=== PATIENT | female | born 1945 | race Caucasian/White ===

== ENCOUNTER 2021-02-13 18:10 | Emergency (ER) | payer MEDICARE, OTHER ==
[~2021-02-13] VITALS: Ht 162.6 cm; Wt 54.0 kg
[2021-02-13 20:01] LABS: ALANINE AMINOTRANSFERASE 37 U/L (12-78); ALBUMIN 3.9 G/DL (3.4-5.0); ALBUMIN/GLOBULIN RATIO 1.1 (1.1-1.5); ALKALINE PHOSPHATASE 71 IU/L (46-116); ANION GAP 12 (8-16); ASPARTATE AMINO TRANSFERASE 31 U/L (10-37); BILIRUBIN,TOTAL 0.3 MG/DL (0.1-1.0); BLOOD UREA NITROGEN 17 MG/DL (7-18); BUN/CREATININE RATIO 23.3 (6.6-38.0); CALCIUM 8.8 MG/DL (8.5-10.1); CHLORIDE 106 MMOL/L (99-107); CREATININE 0.73 MG/DL (0.40-0.90); GLUCOSE 94 MG/DL (70-104); POTASSIUM 4.4 MMOL/L (3.5-5.1); SODIUM 143 MMOL/L (135-145); TOTAL CARBON DIOXIDE 25.2 MMOL/L (24-32); TOTAL PROTEIN 7.3 G/DL (6.4-8.2); eGFR 78 ML/MIN
[2021-02-13 20:23] LABS: BASOPHILS % (AUTO) 0.4 % (0-1); EOSINOPHILS # (AUTO) 0.1 X10'3 (0-0.9); EOSINOPHILS % (AUTO) 1.6 % (0-6); HEMOGLOBIN 13.1 g/dl (12.0-16.0); LYMPHOCYTES # (AUTO) 1.5 X10'3 (1.1-4.8); LYMPHOCYTES % (AUTO) 18.1 % (21-51); MEAN CORPUSCULAR HEMOGLOBIN 31.7 PG (27.0-31.0); MEAN CORPUSCULAR HGB CONC 32.8 g/dL (33.0-36.5); MEAN CORPUSCULAR VOLUME 96.5 FL (78-98); MEAN PLATELET VOLUME 7.5 FL (7.4-10.4); MONOCYTES # (AUTO) 0.7 X10'3 (0-0.9); MONOCYTES % (AUTO) 8.6 % (2-12); NEUTROPHILS # (AUTO) 6.1 X10'3 (1.8-7.7); NEUTROPHILS % (AUTO) 71.3 % (42-75); PLATELET COUNT 387 X10'3 (140-440); RED BLOOD COUNT 4.14 X10'6 (4.20-5.60); RED CELL DISTRIBUTION WIDTH 13.4 % (11.5-14.5); WHITE BLOOD COUNT 8.5 X10'3 (4.5-11.0)
[2021-02-14] MEDS ORDERED: aspirin 81mg tab.chew PO ONE (00:20)
[2021-02-14 00:40] VITALS: BP 121/67
[2021-02-15] MEDS ORDERED: PRE1T PO (16:19)
[2021-02-15] MEDS ORDERED: ATOR20TA66 PO (16:19)
[2021-02-15] MEDS ORDERED: EZET10TA48 PO (16:19)
[2021-02-15] MEDS ORDERED: ESTR-164 (16:19)
[2021-02-15] MEDS ORDERED: LEVO50TA8 PO (16:19)
== END 2021-02-14 02:10 | disposition home or self-care (01) ==
LOC: ER 18:11
DX: R07.89 Other chest pain (principal); R05 Cough; R06.02 Shortness of breath; Z90.89 Acquired absence of other organs; Z90.710 Acquired absence of both cervix and uterus; Z88.8 Allergy status to other drugs, medicaments and biological substances
CPT/HCPCS: 36415; 71045; 80053; 83880; 84484; 85025; 93005; 99285

== ENCOUNTER 2021-02-15 11:22 | Observation (INO) | payer MEDICARE, OTHER ==
[~2021-02-15] VITALS: Ht 162.6 cm; Wt 58.9 kg
[2021-02-15] MEDS ORDERED: aspirin 81mg tab.chew PO ONE ×2 (11:45→16:10)
[2021-02-15] MEDS ORDERED: nitroGLYCERIN 0.4mg SUBLingual tab SL PRN ×3 (11:45→16:25)
[2021-02-15 12:14] LABS: BASOPHILS % (AUTO) 0.3 % (0-1); EOSINOPHILS % (AUTO) 0.2 % (0-6); HEMOGLOBIN 13.5 g/dl (12.0-16.0); LYMPHOCYTES # (AUTO) 0.8 X10'3 (1.1-4.8); LYMPHOCYTES % (AUTO) 10.6 % (21-51); MEAN CORPUSCULAR HEMOGLOBIN 32.2 PG (27.0-31.0); MEAN CORPUSCULAR HGB CONC 33.8 g/dL (33.0-36.5); MEAN CORPUSCULAR VOLUME 95.3 FL (78-98); MEAN PLATELET VOLUME 7.2 FL (7.4-10.4); MONOCYTES # (AUTO) 0.2 X10'3 (0-0.9); MONOCYTES % (AUTO) 3.3 % (2-12); NEUTROPHILS # (AUTO) 6.4 X10'3 (1.8-7.7); NEUTROPHILS % (AUTO) 85.6 % (42-75); PLATELET COUNT 412 X10'3 (140-440); RED CELL DISTRIBUTION WIDTH 13.4 % (11.5-14.5); WHITE BLOOD COUNT 7.4 X10'3 (4.5-11.0)
[2021-02-15 12:23] LABS: D-DIMER 0.33 MG/L FEU (0-0.50)
[2021-02-15 12:26] LABS: ALANINE AMINOTRANSFERASE 42 U/L (12-78); ALBUMIN 3.7 G/DL (3.4-5.0); ALBUMIN/GLOBULIN RATIO 1.1 (1.1-1.5); ALKALINE PHOSPHATASE 61 IU/L (46-116); ANION GAP 9 (8-16); ASPARTATE AMINO TRANSFERASE 27 U/L (10-37); BILIRUBIN,TOTAL 0.4 MG/DL (0.1-1.0); BLOOD UREA NITROGEN 13 MG/DL (7-18); BUN/CREATININE RATIO 15.5 (6.6-38.0); CALCIUM 9.1 MG/DL (8.5-10.1); CHLORIDE 108 MMOL/L (99-107); CREATININE 0.84 MG/DL (0.40-0.90); GLUCOSE 101 MG/DL (70-104); SODIUM 145 MMOL/L (135-145); TOTAL CARBON DIOXIDE 27.9 MMOL/L (24-32); eGFR 66 ML/MIN
[2021-02-15] MEDS ORDERED: LEVO50TA8 PO (16:19)
[2021-02-15] MEDS ORDERED: EZET10TA48 PO (16:19)
[2021-02-15] MEDS ORDERED: ATOR20TA66 PO (16:19)
[2021-02-15] MEDS ORDERED: ESTR-164 (16:19)
[2021-02-15] MEDS ORDERED: PRE1T PO (16:19)
[2021-02-15] MEDS ORDERED: acetaminophen 325mg tablet PO PRN (16:20)
[2021-02-15] MEDS ORDERED: magnesium 2GM in 50ml NS 50 ML IV PRN (16:20)
[2021-02-15] MEDS ORDERED: magnesium 4gm in 100ml NS 100 ML IV PRN (16:20)
[2021-02-15] MEDS ORDERED: potassium Cl 40MEQ/1/2NS 520ml 520 ML IV PRN ×2 (16:20)
[2021-02-15] MEDS ORDERED: magnesium Cl slow-release 64mg tablet PO PRN (16:20)
[2021-02-15] MEDS ORDERED: ondansetron/PF 4mg/2ml inj IV PRN (16:20)
[2021-02-15] MEDS ORDERED: potassium Cl 20 mEq SR tablet PO PRN ×2 (16:20)
[2021-02-15] MEDS ORDERED: morphine 2 MG/ML inj. syringe IV PRN (16:20)
[2021-02-15] MEDS ORDERED: PERFLUTREN PROTEIN-A MICROSPHR (Optison) 0.22 MG/ML 3ML VIAL IV ONE (16:20)
[2021-02-15] MEDS ORDERED: regadenoson 0.4mg/5ml syringe IV ONE (16:25)
[2021-02-15] MEDS ORDERED: metoprolol tartrate 1mg/ml inj IV PRN (16:25)
[2021-02-15] MEDS ORDERED: aminophylline 250mg/10ml inj. IV PRN (16:25)
[2021-02-15] MEDS ORDERED: ezetimibe 10mg tablet PO SCH (16:30)
[2021-02-15] MEDS: K and/or MAG REPLACEMENT MC SCH (19:48)
[2021-02-15] MEDS: heparin, porcine 5000 units/ml vial SQ SCH (20:00)
[2021-02-15] MEDS ORDERED: predniSONE 1 mg tablet PO SCH (21:00)
[2021-02-16] VITALS (8 sets, daily range): BP systolic 110–129; BP diastolic 57–70
[2021-02-16 03:07] LABS: BASOPHILS % (AUTO) 0.4 % (0-1); EOSINOPHILS # (AUTO) 0.1 X10'3 (0-0.9); EOSINOPHILS % (AUTO) 1.4 % (0-6); HEMATOCRIT 37.4 % (35.0-45.0); HEMOGLOBIN 12.3 g/dl (12.0-16.0); LYMPHOCYTES % (AUTO) 28.1 % (21-51); MEAN CORPUSCULAR HEMOGLOBIN 31.4 PG (27.0-31.0); MEAN CORPUSCULAR HGB CONC 32.8 g/dL (33.0-36.5); MEAN CORPUSCULAR VOLUME 95.6 FL (78-98); MONOCYTES # (AUTO) 0.6 X10'3 (0-0.9); NEUTROPHILS # (AUTO) 4.5 X10'3 (1.8-7.7); NEUTROPHILS % (AUTO) 62.1 % (42-75); PLATELET COUNT 349 X10'3 (140-440); RED BLOOD COUNT 3.91 X10'6 (4.20-5.60); RED CELL DISTRIBUTION WIDTH 13.3 % (11.5-14.5); WHITE BLOOD COUNT 7.2 X10'3 (4.5-11.0)
[2021-02-16 03:24] LABS: ALBUMIN 3.1 G/DL (3.4-5.0); ANION GAP 7 (8-16); BLOOD UREA NITROGEN 17 MG/DL (7-18); BUN/CREATININE RATIO 20.7 (6.6-38.0); CALCIUM 8.5 MG/DL (8.5-10.1); CHLORIDE 109 MMOL/L (99-107); CREATININE 0.82 MG/DL (0.40-0.90); GLUCOSE 86 MG/DL (70-104); MAGNESIUM 2.1 MG/DL (1.5-2.4); POTASSIUM 4.5 MMOL/L (3.5-5.1); SODIUM 143 MMOL/L (135-145); TOTAL CARBON DIOXIDE 26.6 MMOL/L (24-32); eGFR 68 ML/MIN
--- NOTE | 2021-02-16 06:50 | NUR ---
Patient in room PCU 3028. I have received report from Ramila and had the opportunity to ask questions. Awaiting for patient to arrive onto the unit.
[2021-02-16] MEDS ORDERED: levoTHYROXINE 25mcg tablet PO SCH (07:00)
[2021-02-16] MEDS ORDERED: pantoprazole 40mg Tablet.DR PO SCH (07:30)
[2021-02-16] MEDS: heparin, porcine 5000 units/ml vial SQ SCH (07:41)
[2021-02-16] MEDS ORDERED: ESTRADIOL TOP SCH (08:00)
[2021-02-16] MEDS: K and/or MAG REPLACEMENT MC SCH (08:00)
[2021-02-16] MEDS ORDERED: regadenoson 0.4mg/5ml syringe IV ONE (09:45)
[2021-02-16] MEDS ORDERED: PANT-47 PO (10:49)
--- NOTE | 2021-02-16 12:07 | NUR ---
notified. PAGER ID: [phone] MESSAGE: RE: Blanca Calero. [id number]. Abnormal stress test results. Thanks. Yasmine. [phone].
--- NOTE | 2021-02-16 14:27 | NUR ---
notified. PAGER ID: [phone] MESSAGE: Re: Lucia Caleroa. [id number]. Cardiology recommends discharge. EKG is normal. I am starting to get patient ready for DC. FYI. [place]. [id number].
--- NOTE | 2021-02-16 15:00 | NUR ---
Patient stable for discharge per cardiology and md orders. Patient belongings gathered and given to patient. IV taken out with cannula intact. Prescriptions called into [facility] in [place], [place]. Patient's two daughters are at bedside. Strict follow up precautions and education given to patient. patient ambulated to lobby with daughters. patient seen leaving the premises in private vehicle.
[2021-02-17] MEDS ORDERED: atorvastatin 20mg tablet PO SCH (08:00)
== END 2021-02-16 15:37 | disposition home or self-care (01) ==
LOC: ER 11:23 → UNDOADMOB 16:18 → ED HOLD 16:18 → PCU 3S 02-16 06:50
PROVIDERS: ADMIT Internal Medicine; ATTEND Internal Medicine
DX: R07.2 Precordial pain (principal); M35.3 Polymyalgia rheumatica; E03.9 Hypothyroidism, unspecified; E78.00 Pure hypercholesterolemia, unspecified; Z90.710 Acquired absence of both cervix and uterus; Z90.49 Acquired absence of other specified parts of digestive tract; Z88.8 Allergy status to other drugs, medicaments and biological substances; Z79.52 Long term (current) use of systemic steroids; Z79.899 Other long term (current) drug therapy
CPT/HCPCS: 36415; 71045; 78451; 80048; 80053; 83735; 83880; 84484; 85025; 85379; 87081; 93005; 93017; 93306; 96372; 99285; A9500; G0378; J1644; J2785; J7512